=== PATIENT | female | born 1990 | race Caucasian/White ===

== ENCOUNTER 2018-09-05 17:17 | Emergency (ER) | payer MEDICAID, OTHER ==
[~2018-09-05] VITALS: Ht 154.9 cm; Wt 81.4 kg
[~2018-09-05 17:17] MED LIST: PREN1TAB52 PO
[2018-09-05] MEDS ORDERED: KETOROLAC TROMETHAMINE 30 MG/ML VIAL IM ONE (19:15)
[2018-09-05 20:03] VITALS: BP 130/79
== END 2018-09-05 20:10 | disposition home or self-care (01) ==
LOC: EMS 17:17
DX: M79.602 Pain in left arm (principal)
CPT/HCPCS: 96372; 99283; J1885

== ENCOUNTER 2022-06-20 11:51 | Emergency (ER) | payer OTHER ==
[~2022-06-20] VITALS: Ht 160 cm; Wt 77.2 kg
[2022-06-20] MEDS ORDERED: KETOROLAC TROMETHAMINE 30 MG/ML VIAL IM ONE (13:30)
[2022-06-20 14:15] VITALS: BP 134/84
== END 2022-06-20 14:21 | disposition home or self-care (01) ==
LOC: EMS 11:52
DX: M25.532 Pain in left wrist (principal); F10.20 Alcohol dependence, uncomplicated; Z90.49 Acquired absence of other specified parts of digestive tract
CPT/HCPCS: 99283; 96372; J1885